=== PATIENT | male | born 1960 | race Caucasian/White ===

== ENCOUNTER 2023-01-29 09:01 | Emergency (ER) | payer SELFPAY ==
[~2023-01-29] VITALS: Ht 193 cm; Wt 113.6 kg
[2023-01-29] MEDS ORDERED: LISINOPRIL20 M1 PO ×2 (09:29→12:23)
[2023-01-29 11:00] VITALS: BP 138/69
[2023-01-29 11:15] VITALS: BP 120/73
[2023-01-29 11:31] VITALS: BP 123/69
[2023-01-29 11:45] VITALS: BP 121/73
[2023-01-29] MEDS ORDERED: DOXYCYCLINE100 MG PO (12:23)
[2023-01-29] MEDS ORDERED: TAMSULOSIN0.4 MG PO (12:23)
[2023-01-29] MEDS ORDERED: PERCOCET 5/325M1 TAB PO (12:23)
[2023-01-29 12:51] VITALS: BP 121/73
== END 2023-01-29 12:54 | disposition home or self-care (01) | DRG 195 ==
LOC: ED 09:01
DX: J18.9 Pneumonia, unspecified organism (principal); N20.0 Calculus of kidney; I10 Essential (primary) hypertension; Z87.442 Personal history of urinary calculi; Z20.822 Contact with and (suspected) exposure to COVID-19